=== PATIENT | female | born 1980 | race American Indian/Alaskan Native ===

== ENCOUNTER 2020-02-27 06:20 | Emergency (ER) | payer SELFPAY ==
[2020-02-27 06:29] VITALS: BP 125/81
--- NOTE | 2020-02-27 07:53 | Emergency Department Report ---
ED Shortness of Breath HPI - General Chief Complaint: Dyspnea/Respdistress Stated Complaint: KOMAL Time Seen by Provider: 02/27/20 07:48 Source: patient, EMS Mode of arrival: Ambulatory Limitations: No Limitations - History of Present Illness Initial Comments: 39-year-old female presents emerged department complaining of various episodes of shortness of breath lasting 1 to 3 days with spontaneous resolution since November 2019. She reports no known cough but she denies any foreign travel. No sick contacts no hemoptysis no hematemesis no hematochezia daily. No Covid positive patients to her knowledge. She reports no numbness, no tingling, no dizziness, no palpitations, no sore throat, no sinus congestion. She reports no wheezing no productive cough. MD Complaint: shortness of breath -: Gradual Severity: mild Improves With: nothing Worsens With: nothing Associated Symptoms: denies other symptoms Treatments Prior to Arrival: none - Related Data Previous Rx's Medication Instructions Recorded Last Taken Type Albuterol INH(or & Nicu Only) 1 puff IH Q8HR PRN #8.5 gram 02/27/20 Unknown Rx [ProAir HFA Inhaler] Allergies Allergy/AdvReac Type Severity Reaction Status Date / Time No Known Allergies Allergy Unverified 02/27/20 07:38 ED Review of Systems ROS: Stated complaint: KOMAL Other details as noted in HPI Comment: All other systems reviewed and negative ED Past Medical Hx - Past Medical History Previous Medical History?: No - Surgical History Past Surgical History?: No - Social History Smoking Status: Never Smoker Substance Use Type: Alcohol - Medications Home Medications: Home Medications Medication Instructions Recorded Confirmed Last Taken Type Albuterol INH(or & Nicu Only) 1 puff IH Q8HR PRN #8.5 gram 02/27/20 Unknown Rx [ProAir HFA Inhaler] ED Physical Exam - General Limitations: No Limitations General appearance: alert, in no apparent distress - Head Head exam: Present: atraumatic, normocephalic - Eye Eye exam: Present: normal appearance, PERRL, EOMI Pupils: Present: normal accommodation - ENT ENT exam: Present: normal exam, normal orophraynx, mucous membranes moist - Neck Neck exam: Present: normal inspection, full ROM. Absent: lymphadenopathy - Respiratory Respiratory exam: Present: normal lung sounds bilaterally. Absent: respiratory distress, wheezes, rales, rhonchi, chest wall tenderness, accessory muscle use, decreased breath sounds - Cardiovascular Cardiovascular Exam: Present: regular rate, normal rhythm. Absent: systolic murmur, diastolic murmur, rubs, gallop - GI/Abdominal GI/Abdominal exam: Present: soft, normal bowel sounds - Extremities Exam Extremities exam: Present: normal inspection, normal capillary refill - Back Exam Back exam: Present: normal inspection. Absent: CVA tenderness (R), CVA tenderness (L) - Neurological Exam Neurological exam: Present: alert, oriented X3, CN II-XII intact, normal gait (Coordinated and smooth. No distress) - Psychiatric Psychiatric exam: Present: normal affect, normal mood. Absent: anxious, flat affect, manic - Skin Skin exam: Present: warm, dry, intact, normal color. Absent: rash, diaphoretic, erythema, petechiae, pallor ED Course Vital Signs 02/27/20 02/27/20 06:27 07:40 Temperature 98.1 F Pulse Rate 81 Respiratory 18 18 Rate Blood Pressure 125/81 O2 Sat by Pulse 100 99 Oximetry ED Medical Decision Making - Radiology Data Radiology results: report reviewed Chest x-ray shows no acute processes [facility] [address] [place] [address] XRay Report Signed Patient: PRINCESS ARCHANA BERRIOS MR#: [id number] : 1980 Acct:[id number] Age/Sex: 39 / F ADM Date: 02/27/20 Loc: ED Attending Dr: Ordering Physician: MELINDA SHARMA MD Date of Service: 02/27/20 Procedure(s): XR chest routine 2V Accession Number(s): [id number] cc: MELINDA SHARMA MD Fluoro Time In Minutes: CHEST 2 VIEWS INDICATION: MAIN: sob.cough x2days. COMPARISON: None FINDINGS: Support devices: None. Heart: Within normal limits. Lungs/pleura: No acute air space or interstitial disease. No pneumothorax. Additional findings: None. IMPRESSION: 1. No acute findings. Signer Name: Phil Foote MD Signed: 02/27/2020 9:24 AM Workstation Name: [id number] Transcribed By: EMERSON Dictated By: Phil Foote MD Electronically Authenticated By: Phil Foote MD Signed Date/Time: 02/27/20923 DD/ 3 TD/TT: - Medical Decision Making This patient presents with dyspnea most likely secondary to unknown etiology at this time. Differential diagnosis includes asthma, bronchitis, pleuritic pulmonary issue, viral syndrome. Presentation not consistent with acute cardiac etiologies to include ACS , CHF, pericardial effusion/tamponade. Presentation not consistent with acute respiratory etiologies to include acute pulmonary e mbolism ( PERC negative), pneumothorax, asthma, COPD exacerbation, infectious etiology such as pneumonia. The presentation also not consistent with known cardiopulmonary causes to include toxic syndrome, metabolic etiology such as acidemia or electrolyte derangements, sepsis, neurologic causes. (Is currently ambulatory no acute distress talking on the phone and texting with no limitation. Critical care attestation.: If time is entered above; I have spent that time in minutes in the direct care of this critically ill patient, excluding procedure time. ED Disposition Clinical Impression: Reactive airway disease Disposition: DC-01 TO HOME OR SELFCARE Is pt being admited?: No Does the pt Need Aspirin: No Condition: Stable Instructions: Reactive Airways Disease (ED) Prescriptions: Albuterol INH(or & Nicu Only) [ProAir HFA Inhaler] 1 puff IH Q8HR PRN #8.5 gram PRN Reason: Shortness Of Breath Referrals: [facility] [Provider Group] - 3-5 Days [facility] [Provider Group] - 3-5 Days JOLENE HWANG MD [Staff Physician] - 3-5 Days
--- NOTE | 2020-02-27 09:28 | XRay Report ---
CHEST 2 VIEWS INDICATION: MAIN: sob.cough x2days. COMPARISON: None FINDINGS: Support devices: None. Heart: Within normal limits. Lungs/pleura: No acute air space or interstitial disease. No pneumothorax. Additional findings: None. IMPRESSION: 1. No acute findings. Signer Name: Phil Foote MD Signed: 02/27/2020 9:24 AM Workstation Name: [email or web address]
== END 2020-02-27 09:53 | disposition home or self-care (01) ==
LOC: ED 06:20
DX: J45.909 Unspecified asthma, uncomplicated (principal); Z79.899 Other long term (current) drug therapy
CPT/HCPCS: 71046